=== PATIENT | male | born 1945 | race Two or more races ===

== ENCOUNTER 2018-10-17 19:36 | Emergency (ER) | payer MEDICARE, OTHER ==
[~2018-10-17] VITALS: Ht 175.3 cm; Wt 79.4 kg
--- NOTE | 2018-10-17 19:41 | NUR ---
BIB RA FROM HOME S/P FALL FROM LADDER APPROX HEIGHT THE ER CEILING WHICH IS ABOUT 8 FEET IN HEIGHT. C/O R SHOULDER PAIN 10/10, R CHEST PAIN 10/10. PT IS TACHYPNEIC. HE IS TREMBLING. PER REPORT, NO KO. PT RECEIEVED ON C COLLAR FOR PRECAUTION. MD AT BEDSIDE FOR EVAL.
[2018-10-17] MEDS ORDERED: ONDANSETRON HCL/PF 4 MG/2 ML VIAL ONE (19:43)
[2018-10-17] MEDS ORDERED: HYDROMORPHONE 1 MG/1 ML DISP.SYRIN ONE (19:43)
--- NOTE | 2018-10-17 19:49 | NUR ---
BEING WHEELED TO RADIOLOGY
[2018-10-17] MEDS ORDERED: IV NS 0.9% 1,000 ML BAG IV ONE (20:00)
[2018-10-17] MEDS ORDERED: HYDROMORPHONE INJ 2 MG/ML DISP.SYRIN IV ONE (20:00)
[2018-10-17] MEDS ORDERED: ONDANSETRON HCL/PF 4 MG/2 ML VIAL IVP ONE (20:00)
--- NOTE | 2018-10-17 20:06 | NUR ---
BACK FROM RADIOLOGY
--- NOTE | 2018-10-17 20:25 | NUR ---
GIVEN ICE CHIP FOR DRY MOUTH. APPROVED.
--- NOTE | 2018-10-17 20:30 | NUR ---
CALLED [facility] RE: RADIOLOGY READS
--- NOTE | 2018-10-17 20:57 | NUR ---
TECH AT BEDSIDE TO PUT ARM SLONG ON PATIENT.
--- NOTE | 2018-10-17 21:05 | NUR ---
PT REQUESTED ANOTHER CERVICAL COLLAR
[2018-10-17 21:10] VITALS: BP 154/94
--- NOTE | 2018-10-17 21:10 | NUR ---
Patient discharged to home in stable condition. Written and verbal after care instructions given. Patient verbalizes understanding of instruction.
== END 2018-10-17 21:13 | disposition home or self-care (01) ==
LOC: ER 19:38
DX: S40.011A Contusion of right shoulder, initial encounter (principal); S09.8XXA Other specified injuries of head, initial encounter; W11.XXXA Fall on and from ladder, initial encounter; Y93.89 Activity, other specified; Y92.89 Other specified places as the place of occurrence of the external cause; Y99.0 Civilian activity done for income or pay
CPT/HCPCS: 70450; 71045; 72125; 73030; 96374; 96375; 99284; J1170; J2405; J7030; L0172

== ENCOUNTER 2020-08-23 18:11 | Emergency (ER) | payer BC, MEDICARE ==
[~2020-08-23] VITALS: Ht 172.7 cm; Wt 79.4 kg
[2020-08-23] MEDS ORDERED: SERT-438 PO (18:37)
[2020-08-23 18:46] LABS: BASOPHILS % (AUTO) 0.3 % (0.0-2.0); EOSINOPHILS % (AUTO) 3.4 % (0.0-6.0); HEMATOCRIT 36 % (39-51); HEMOGLOBIN 12.2 g/dL (13.5-17.5); LYMPHOCYTES # (AUTO) 1.4 /CMM (0.8-4.8); LYMPHOCYTES % (AUTO) 32.4 % (20.0-44.0); MEAN CORPUSCULAR HGB CONC 34 g/dl (31.0-36.0); MEAN CORPUSCULAR VOLUME 92 fL (80-96); MONOCYTES # (AUTO) 0.3 /CMM (0.1-1.30); MONOCYTES % (AUTO) 6.2 % (2.0-12.0); NEUTROPHILS # (AUTO) 2.5 /CMM (1.8-8.9); NEUTROPHILS % (AUTO) 57.7 % (43.0-81.0); PLATELET COUNT (AUTO) 170 /CMM (150-450); RED BLOOD CELL COUNT(AUTO) 3.91 MIL/uL (4.5-6.0); WHITE BLOOD COUNT (AUTO) 4.3 K/uL (4.3-11.0)
--- NOTE | 2020-08-23 18:54 | NUR ---
BIBS W/ FAMILY TO ER BED 6. AAOX4. NOT IN RESP DISTRESS, BREATHING EVEN, UNLABORED AND SATTING @ 100% ON RA. CAME IN FOR FEELING SHORT OF BREATH FOR THE PAST 4 DAYS WELL FATIGUE. PT REPORTS THAT HE HAD A BLADDER SURGERY RECENTLY BUT UNABLE TO SAY WHAT IS THE NAME OF THE PROCEDURE. MD WAS AT THE BEDSIDE FOR EVAL. ORDERS RECEIEVED, NOTED AND CARRIED OUT. IV LINE ESTABLISHED ON THE L AC 18G, BLOOD DRAWN AND GIVEN TO FORWARDER OPERATOR AT BEDSIDE.
[2020-08-23 19:08] LABS: B-TYPE NATRIURETIC PEPTIDE 363 PG/ML (0-125); CALCIUM, SERUM 8.9 mg/dL (8.5-10.1); CARBON DIOXIDE 29 mmol/L (21-32); CHLORIDE 105 mmol/L (98-107); CREATININE 5.3 mg/dL (0.6-1.3); GLUCOSE 108 mg/dL (74-106); POTASSIUM 4.9 mmol/L (3.5-5.1); SODIUM SERUM 142 mmol/L (136-145)
--- NOTE | 2020-08-23 19:10 | NUR ---
LAB CALLED BUN IS 85
[2020-08-23 19:11] LABS: UREA NITROGEN, BLOOD 85 mg/dL (7-18)
[2020-08-23 19:13] LABS: D-DIMER 2.82 mg/L(FEU (0.17-0.50)
--- NOTE | 2020-08-23 19:59 | NUR ---
Patient does not wish to proceed with medical care recommended by Dr. Geoffrey Garcia MD. Patient given information related to possible complications, up to and including , which could occur as a result of leaving the hospital at this time. Patient verbalizes understanding of risks involved due to leaving against medical advice. Patient has signed AMA form.
[2020-08-23 20:04] VITALS: BP 147/83
--- NOTE | 2020-08-23 20:04 | NUR ---
IV removed. Catheter intact and site benign. Pressure and 4x4 applied to site. No bleeding noted. Pt ambulatory with a steady gait
== END 2020-08-23 20:04 | disposition left against medical advice (07) ==
LOC: ER 18:25
DX: N17.9 Acute kidney failure, unspecified (principal); Z79.899 Other long term (current) drug therapy
CPT/HCPCS: 36415; 71045-TC; 80048-TC; 83880; 84484-TC; 85025-TC; 85378-TC; 85730-TC

== ENCOUNTER 2020-08-23 21:24 | Inpatient (IN) | payer MEDICARE, BC ==
[~2020-08-23] VITALS: Ht 182.9 cm; Wt 79.8 kg
[~2020-08-23 21:24] MED LIST: SERT-438 PO
--- NOTE | 2020-08-23 21:55 | NUR ---
BIBFAMILY FROM HOME TO ER BED 6. AAOX4. NOT IN RESP DISTRESS. AMBULATORY. PT CAME BACK FROM SIGNING AMA EARLIER. PT WAS SUPPOSE TO BE ADMITTED FOR ACUTE KIDNEY INJURY AND ELEVATED D DIMMER. PT VERBALIZED THAT HE WAS TOO NERVOUS EARLIER THAT IS WHY HE LEFT AMA. PT IS IN A GOWN. IV LINE ESTABLISHED ON THE RFA 18G.
[2020-08-23] MEDS ORDERED: ONDANSETRON HCL/PF 4 MG/2 ML VIAL IVP PRN (22:00)
[2020-08-23] MEDS ORDERED: MAGNESIUM HYDROXIDE 30 ML UDC PO PRN (22:00)
[2020-08-23] MEDS ORDERED: ZOLPIDEM TARTRATE 5 MG TABLET PO PRN (22:00)
[2020-08-23] MEDS ORDERED: ACETAMINOPHEN 325 MG TABLET PO PRN (22:00)
[2020-08-23] MEDS ORDERED: HYDROCODONE/APAP 5/325MG TABLET PO PRN (22:00)
--- NOTE | 2020-08-23 22:01 | NUR ---
COVID SWAB DONE AND SENT TO LAB
--- NOTE | 2020-08-23 22:35 | NUR ---
PT'S ISABELLE CALLED TO HAVE HIS HELD IN THE ER. PT HAVE ALREADY HAVE HIS MOTHER PICK HIM UP. PT'S IS VERY PUSHY AND DEMANDING. PT WAS CELARED TO BE DISCHARGED ALREADY.
--- NOTE | 2020-08-23 23:37 | NUR ---
nursing sup called for room assigment
--- NOTE | 2020-08-24 00:17 | NUR ---
report given to denny hogan for adi; pt will be transported to 3rd floor
[2020-08-24 00:30] VITALS: BP 139/73
--- NOTE | 2020-08-24 00:30 | NUR ---
TELE/EDGE ROLLER NOTE PATIENT TRANSPORTED TO ROOM 317-2 VIA GURNEY AND 1 STAFF MEMBER. PATIENT IS ALERT AND ORIENTED X 4. ABLE TO MAKE NEEDS KNOWN. NO COMPLAINTS OF PAIN AT THIS TIME. RESPIRATIONS EVEN AND UNLABORED. IV ACCESS TO RIGHT WRIST INTACT AND PATENT. NO SKIN ISSUES NOTED ON ADMISSION. MRSA SWAB CURRENTLY PENDING. PATIENT STARTED ON IVF NS @ 100ML/HR. VS: BP 139/73 HR 60 RR 20 T 97.6 O2 SAT 100% ON ROOM AIR. PATIENT ABLE TO AMBULATE WITH STANDBY ASSIST. CALL LIGHT WITHIN REACH. ASPIRATION, FALL AND SAFETY PRECAUTIONS MAINTAINED. WILL CONTINUE TO MONITOR.
[2020-08-24] MEDS: IV NS 0.9% 1,000 ML IV PRN ×2 (00:51→15:29)
[2020-08-24] MEDS: APIXABAN 2.5 MG TABLET PO SCH ×3 (00:53→17:28)
[2020-08-24 04:00] VITALS: BP 140/78
--- NOTE | 2020-08-24 06:08 | NUR ---
TELE/RN CLOSING NOTE PATIENT CURRENTLY RESTING IN BED. ALERT AND ORIENTED X 4. ABLE TO MAKE NEEDS KNOWN. NO COMPLAINTS OF PAIN AT THIS TIME. IV ACCESS TO RIGHT WRIST INTACT AND PATENT. CONTINUES ON NS @ 100ML/HR. CALL LIGHT WITHIN REACH. ASPIRATION, FALL AND SAFETY PRECAUTIONS MAINTAINED. WILL ENDORSE PLAN OF CARE TO ONCOMING SHIFT.
[2020-08-24 06:28] LABS: BASOPHILS % (AUTO) 0.4 % (0.0-2.0); EOSINOPHILS % (AUTO) 2.6 % (0.0-6.0); HEMATOCRIT 35 % (39-51); LYMPHOCYTES # (AUTO) 1.3 /CMM (0.8-4.8); LYMPHOCYTES % (AUTO) 31.8 % (20.0-44.0); MEAN CORPUSCULAR HGB CONC 34 g/dl (31.0-36.0); MEAN CORPUSCULAR VOLUME 91 fL (80-96); MONOCYTES # (AUTO) 0.2 /CMM (0.1-1.30); MONOCYTES % (AUTO) 4.9 % (2.0-12.0); NEUTROPHILS # (AUTO) 2.5 /CMM (1.8-8.9); NEUTROPHILS % (AUTO) 60.3 % (43.0-81.0); PLATELET COUNT (AUTO) 156 /CMM (150-450); RED BLOOD CELL COUNT(AUTO) 3.86 MIL/uL (4.5-6.0); WHITE BLOOD COUNT (AUTO) 4.1 K/uL (4.3-11.0)
--- NOTE | 2020-08-24 06:45 | NUR ---
TELE/RN NOTE COLLECTED URINE FOR URINALYSIS PROFILE. PATIENT ON TELE MONITOR READING SINUS ARRHYTHMIA. NO COMPLAINTS OF SOB OR HEART PALPITATIONS. WILL ENDORSE TO ONCOMING RN.
[2020-08-24 06:47] LABS: CALCIUM, SERUM 8.9 mg/dL (8.5-10.1); CARBON DIOXIDE 27 mmol/L (21-32); CHLORIDE 107 mmol/L (98-107); CREATININE 4.7 mg/dL (0.6-1.3); GLUCOSE 111 mg/dL (74-106); POTASSIUM 4.7 mmol/L (3.5-5.1); SODIUM SERUM 143 mmol/L (136-145); UREA NITROGEN, BLOOD 76 mg/dL (7-18)
[2020-08-24 07:03] LABS: CHOLESTEROL 184 mg/dL (<200); HDL CHOLESTEROL 33 mg/dL (40-60); LDL 123 mg/dL (0-99); TRIGLYCERIDES 104 mg/dL (30-150)
[2020-08-24 08:00] VITALS: BP 160/89
--- NOTE | 2020-08-24 08:08 | NUR ---
WORD PROCESSING SPECIALIST OPENING NOTE PATIENT CURRENTLY SITTING UP IN BED EATING BREAKFAST. A/O X 4. ABLE TO MAKE NEEDS KNOWN. NO COMPLAINTS OF PAIN AT THIS TIME. IV IN RIGHT WRIST #18 INTACT AND PATENT - RUNNING NS @ 100ML/HR. CALL LIGHT WITHIN REACH. ASPIRATION, FALL AND SAFETY PRECAUTIONS MAINTAINED. WILL CONTINUE TO MONITOR.
[2020-08-24] MEDS: SERTRALINE HCL 50 MG TABLET PO SCH (08:50)
[2020-08-24 08:56] LABS: IRON, SERUM 49 ug/dl (50-175); TOTAL IRON BINDING CAPACITY 250 ug/dl (250-450)
[2020-08-24 09:33] LABS: FERRITIN 372 ng/mL (8-388)
--- NOTE | 2020-08-24 11:05 | NUR ---
[phone]), PT'S DAUGHTER CALLED AND WAS UPDATED ON PT'S STATUS. WILL CONTINUE WITH PLAN OF CARE
[2020-08-24 11:37] LABS: BILIRUBIN,URINE NEGATIVE (NEGATIVE); COLOR,URINE YELLOW (YELLOW); LEUKOCYTE ESTERASE ,URINE NEGATIVE (NEGATIVE); NITRITE, URINE NEGATIVE (NEGATIVE); PROTEIN,URINE NEGATIVE (NEGATIVE); UGLUCOSE NEGATIVE (NEGATIVE); UROBILINOGEN,URINE 0.2 EU/dL (0.2)
[2020-08-24 12:46] LABS: RBC,URINE 21-50 /HPF (0-2)
[2020-08-24 12:47] LABS: BACTERIA,URINE Rare /HPF (None Seen); SQUAMOUS EPITHELIAL CELL,UR Rare /HPF (None Seen)
[2020-08-24 16:04] VITALS: BP 155/100
--- NOTE | 2020-08-24 18:43 | NUR ---
RN CLOSING NOTES PT AWAKE IN BED AT THIS, PT REMAINED STABLE THROUGH OUT SHIFT. ALL CARE, NEEDS, MEDICATIONS AND TREATMENT ADMINISTERED ANTICIPATED PER ORDER. SAFETY AND ASPIRATION PRECAUTIONS IN PLACE AND MAINTAINED AT ALL TIME. BED IN LOWEST LOCKED POSITION, SIDE RAILS UPX2, HOB ELEVATED, CALL LIGHT AND TABLE WITHIN REACH. WILL ENDORSE TO SAFETY ENGINEER NURSE F0R CHICA
[2020-08-24 20:00] VITALS: BP 141/90
--- NOTE | 2020-08-24 20:01 | NUR ---
MS RN OPENING NOTES PATIENT IN BED, A/OX4, ABLE TO MAKE NEEDS KNOWN. ON ROOM AIR, TOLERATING WELL WITH NO SOB. DENIES PAIN OR DISCOMFORT AT THIS TIME. IV #18G TO RIGHT WRIST; PATENT AND INTACT. SAFETY PRECAUTIONS IN PLACE: BED IN LOWEST LOCKED POSITION; SIDERAILS UPX2; CALL LIGHT WITHIN REACH. BED ALARMS ON. PATIENT MEDICALLY STABLE.
[2020-08-25 05:46] LABS: BASOPHILS % (AUTO) 0.4 % (0.0-2.0); EOSINOPHILS % (AUTO) 3.4 % (0.0-6.0); HEMATOCRIT 38 % (39-51); HEMOGLOBIN 12.6 g/dL (13.5-17.5); LYMPHOCYTES # (AUTO) 1.5 /CMM (0.8-4.8); LYMPHOCYTES % (AUTO) 32.5 % (20.0-44.0); MEAN CORPUSCULAR HGB CONC 33 g/dl (31.0-36.0); MEAN CORPUSCULAR VOLUME 91 fL (80-96); MONOCYTES # (AUTO) 0.2 /CMM (0.1-1.30); MONOCYTES % (AUTO) 4.5 % (2.0-12.0); NEUTROPHILS # (AUTO) 2.7 /CMM (1.8-8.9); NEUTROPHILS % (AUTO) 59.2 % (43.0-81.0); PLATELET COUNT (AUTO) 162 /CMM (150-450); RED BLOOD CELL COUNT(AUTO) 4.16 MIL/uL (4.5-6.0); WHITE BLOOD COUNT (AUTO) 4.5 K/uL (4.3-11.0)
[2020-08-25 06:09] LABS: ALANINE AMINOTRANSFERASE 18 U/L (12-78); ALBUMIN 3.4 g/dL (3.4-5.0); ALKALINE PHOSPHATASE 59 U/L (46-116); ASPARTATE AMINOTRANSFERASE 9 U/L (15-37); BILIRUBIN,TOTAL 0.3 mg/dL (0.2-1.0); CALCIUM, SERUM 9.4 mg/dL (8.5-10.1); CARBON DIOXIDE 27 mmol/L (21-32); CHLORIDE 108 mmol/L (98-107); CREATININE 3.7 mg/dL (0.6-1.3); GLUCOSE 113 mg/dL (74-106); MAGNESIUM 2.6 mg/dL (1.8-2.4); PHOSPHORUS 5.7 mg/dL (2.5-4.9); POTASSIUM 4.8 mmol/L (3.5-5.1); SODIUM SERUM 144 mmol/L (136-145); TOTAL PROTEIN, SERUM 7.2 g/dL (6.4-8.2); UREA NITROGEN, BLOOD 63 mg/dL (7-18)
--- NOTE | 2020-08-25 07:06 | NUR ---
MS RN CLOSING NOTES PATIENT IN BED, A/OX4, ABLE TO MAKE NEEDS KNOWN. ON ROOM AIR, TOLERATING WELL WITH NO SOB. DENIES PAIN OR DISCOMFORT AT THIS TIME. IV #18G TO RIGHT WRIST; NS @ 100ML/HR; PATENT AND INTACT. SAFETY PRECAUTIONS IN PLACE: BED IN LOWEST LOCKED POSITION; SIDERAILS UPX2; CALL LIGHT WITHIN REACH. BED ALARMS ON. PATIENT MEDICALLY STABLE.
[2020-08-25] MEDS: IV NS 0.9% 1,000 ML IV PRN (07:20)
[2020-08-25 08:00] VITALS: BP 155/86
--- NOTE | 2020-08-25 08:00 | NUR ---
RN OPENING NOTE PT IS AWAKE IN BED. A/O X3 AND UKRAINIAN SPEAKING. ABLE TO MAKE NEEDS KNOWN TO NURSES. NO COMPLAINT OF PAIN OR NAUSEA.COMPLAINT OF CONSTIPATION.. ON RA WITH NO SOB OR RESPIRATORY DISTRESS PRESENT. AMBULATORY WITH BATHROOM PRIVILEGES. SKIN IS INTACT. SAFETY MEASURES IN PLACE. SIDE RAILS RAISED. BED LOWERED. CALL LIGHT WITHIN REACH. WILL CONTINUE TO MONITOR.
[2020-08-25 08:06] LABS: COMPLEMENT C3, SERUM 131 mg/dL (82-167); COMPLEMENT C4, SERUM 24 mg/dL (12-38)
[2020-08-25] MEDS: SERTRALINE HCL 50 MG TABLET PO SCH (08:14)
[2020-08-25] MEDS: APIXABAN 2.5 MG TABLET PO SCH ×2 (08:18→16:53)
[2020-08-25 11:03] LABS: ABG BASE EXCESS 0.7 mmol/L; ABG OXYGEN SATURATION 97.8 % (92.0-98.5); ABG PCO2 25.8 mmHg (35.0-45.0); ABG PH 7.546 (7.350-7.450); ABG PO2 108.3 mmHg (75.0-100.0); AaDO2 10.5 mmHg; MetHb 0.2 % (0.0-1.5); O2Hb 97.6 % (94.0-97.0); SITE, ABG Right Radial; VENT MODE, BG room air
[2020-08-25] MEDS: IPRATROPIUM NEB FS 0.5 MG/2.5 ML AMPUL.NEB NEB SCH ×3 (11:30→19:30)
[2020-08-25] MEDS: ALBUTEROL HALF STRENGTH 1.25 MG/3 ML VIAL.NEB NEB SCH ×3 (11:30→19:30)
[2020-08-25 16:00] VITALS: BP 131/78
--- NOTE | 2020-08-25 18:33 | NUR ---
RN CLOSING NOTE PT IS AWAKE IN BED RESTING. A/O X3 AND UNDERSTANDS KYRGYZ. NO COMPLAINT OF PAIN OR NAUSEA. CURRENTLY ON RA WITH NO SOB OR RESPIRATORY DISTRESS PRESENT. AMBULATORY WITH BATHROOM PRIVILEGES. SKIN IS INTACT. NO EDEMA PRESENT. HL PRESENT ON R WRIST 18G. ROUTINE MEDS GIVEN. SAFETY MEASURES IN PLACE. SIDE RAILS RAISED. BED LOWERED. CALL LIGHT WITHIN REACH. ROUTINE MEDS TO BE GIVEN TO NIGHT NURSE FOR CHICA.
--- NOTE | 2020-08-25 19:32 | NUR ---
MS RN OPENING NOTES PATIENT IN BED, A/OX4, ABLE TO MAKE NEEDS KNOWN. ON ROOM AIR, TOLERATING WELL WITH NO SOB. DENIES PAIN OR DISCOMFORT AT THIS TIME. IV #18G TO RIGHT WRIST; NS @ 100ML/HR; PATENT AND INTACT. SAFETY PRECAUTIONS IN PLACE: BED IN LOWEST LOCKED POSITION; SIDERAILS UPX2; CALL LIGHT WITHIN REACH. BED ALARMS ON. PATIENT MEDICALLY STABLE.
[2020-08-25 20:10] VITALS: BP 127/73
--- NOTE | 2020-08-26 01:27 | NUR ---
MS RN NOTE D/STEFANIA ELIQUIS. EXTREMITY VENOUS STUDY INDICATED NO DVT. PER. DR OCONNOR "can discontinue anticoagulant if thromboembolic work-up is negative"
[2020-08-26] MEDS: IPRATROPIUM NEB FS 0.5 MG/2.5 ML AMPUL.NEB NEB SCH ×4 (01:30→19:30)
[2020-08-26] MEDS: ALBUTEROL HALF STRENGTH 1.25 MG/3 ML VIAL.NEB NEB SCH ×4 (01:30→19:30)
[2020-08-26 06:17] LABS: ALANINE AMINOTRANSFERASE 15 U/L (12-78); ALBUMIN 3.2 g/dL (3.4-5.0); ALKALINE PHOSPHATASE 56 U/L (46-116); ASPARTATE AMINOTRANSFERASE 10 U/L (15-37); BILIRUBIN,TOTAL 0.4 mg/dL (0.2-1.0); CARBON DIOXIDE 26 mmol/L (21-32); CHLORIDE 109 mmol/L (98-107); CREATININE 3.1 mg/dL (0.6-1.3); GLUCOSE 118 mg/dL (74-106); MAGNESIUM 2.4 mg/dL (1.8-2.4); PHOSPHORUS 4.8 mg/dL (2.5-4.9); POTASSIUM 4.2 mmol/L (3.5-5.1); SODIUM SERUM 143 mmol/L (136-145); UREA NITROGEN, BLOOD 54 mg/dL (7-18)
[2020-08-26 06:26] LABS: BASOPHILS % (AUTO) 0.9 % (0.0-2.0); EOSINOPHILS % (AUTO) 1.5 % (0.0-6.0); HEMATOCRIT 37 % (39-51); HEMOGLOBIN 12.4 g/dL (13.5-17.5); LYMPHOCYTES # (AUTO) 1.7 /CMM (0.8-4.8); LYMPHOCYTES % (AUTO) 34.3 % (20.0-44.0); MEAN CORPUSCULAR HGB CONC 33 g/dl (31.0-36.0); MEAN CORPUSCULAR VOLUME 92 fL (80-96); MONOCYTES # (AUTO) 0.2 /CMM (0.1-1.30); MONOCYTES % (AUTO) 3.7 % (2.0-12.0); NEUTROPHILS % (AUTO) 59.6 % (43.0-81.0); PLATELET COUNT (AUTO) 153 /CMM (150-450); RED BLOOD CELL COUNT(AUTO) 4.05 MIL/uL (4.5-6.0)
--- NOTE | 2020-08-26 06:42 | NUR ---
MS RN CLOSING NOTES PATIENT IN BED, A/OX4, ABLE TO MAKE NEEDS KNOWN. ON ROOM AIR, TOLERATING WELL WITH NO SOB. DENIES PAIN OR DISCOMFORT AT THIS TIME. IV #18G TO RIGHT WRIST; NS @ 100ML/HR; PATENT AND INTACT. SAFETY PRECAUTIONS IN PLACE: BED IN LOWEST LOCKED POSITION; SIDERAILS UPX2; CALL LIGHT WITHIN REACH. BED ALARMS ON. PATIENT MEDICALLY STABLE. WILL ENDORSE CHICA TO ONCOMING MORNING RN.
[2020-08-26 08:00] VITALS: BP 159/102
--- NOTE | 2020-08-26 08:00 | NUR ---
RN OPENING NOTE PT IS AWAKE IN BED. A/O X3 AND MALAY SPEAKING. ABLE TO MAKE NEEDS KNOWN TO NURSES. NO COMPLAINT OF PAIN OR NAUSEA.COMPLAINT OF CONSTIPATION.. ON RA WITH NO SOB OR RESPIRATORY DISTRESS PRESENT. AMBULATORY WITH BATHROOM PRIVILEGES. SKIN IS INTACT. SAFETY MEASURES IN PLACE. SIDE RAILS RAISED. BED LOWERED. CALL LIGHT WITHIN REACH. WILL CONTINUE TO MONITOR.
[2020-08-26] MEDS: SERTRALINE HCL 50 MG TABLET PO SCH (10:50)
[2020-08-26 16:00] VITALS: BP 125/60
--- NOTE | 2020-08-26 18:43 | NUR ---
RN CLOSING NOTE PT IS AWAKE IN BED RESTING. A/O X3 AND UNDERSTANDS ITALIAN. NO COMPLAINT OF PAIN OR NAUSEA. CURRENTLY ON RA WITH NO SOB OR RESPIRATORY DISTRESS PRESENT. AMBULATORY WITH BATHROOM PRIVILEGES. SKIN IS INTACT. NO EDEMA PRESENT. HL PRESENT ON R WRIST 18G. ROUTINE MEDS GIVEN. SAFETY MEASURES IN PLACE. SIDE RAILS RAISED. BED LOWERED. CALL LIGHT WITHIN REACH. ROUTINE MEDS TO BE GIVEN TO NIGHT NURSE FOR CHICA.
[2020-08-26 20:00] VITALS: BP 132/73
--- NOTE | 2020-08-26 20:00 | NUR ---
RN OPENING NOTE AWAKE IN BED A/O X3 DENIES PAIN OR NAUSEA. CURRENTLY ON RA DENIES SOB OR RESPIRATORY DISTRESS. AMBULATORY WITH BATHROOM PRIVILEGES. SKIN INTACT. NO EDEMA PRESENT. HL PRESENT ON R WRIST 18G. ROUTINE MEDS GIVEN. PT REFUSING IVF ORDERED. PT ENCOURAGED TO DRINK MORE WATER. SAFETY MEASURES IN PLACE. SIDE RAILS RAISED. BED DOWN. CALL LIGHT WITHIN REACH. WILL CONT TO MONITOR.
--- NOTE | 2020-08-26 21:00 | NUR ---
PT DECIDED TO START NS AT 100 AGAIN. IVF STARTED PER MD ORDERS.
[2020-08-27] MEDS: IV NS 0.9% 1,000 ML IV PRN (01:57)
[2020-08-27] MEDS: IPRATROPIUM NEB FS 0.5 MG/2.5 ML AMPUL.NEB NEB SCH ×3 (02:01→12:40)
[2020-08-27] MEDS: ALBUTEROL HALF STRENGTH 1.25 MG/3 ML VIAL.NEB NEB SCH ×3 (02:01→12:40)
--- NOTE | 2020-08-27 07:11 | NUR ---
RN CLOSING NOTE IN BED A/O X3 DENIES PAIN OR NAUSEA. ON RA DENIES SOB OR RESPIRATORY DISTRESS. AMBULATORY WITH BATHROOM PRIVILEGES. SKIN INTACT. NO EDEMA PRESENT. HL PRESENT ON R WRIST 18G. RUNNING NS AT 100 ML PER HOUR ORDERED. SIDE RAILS RAISED X2. BED DOWN LOCKED. CALL LIGHT WITHIN REACH. WILL ENDORSE TO ONCOMING SHIFT.
--- NOTE | 2020-08-27 07:30 | NUR ---
RN MS NOTES PT IN BED, AWAKE, ALERT AND ORIENTED, DENIES PAIN, NOT IN DISTRESS, CALL LIGHT WITHIN REACH, IV FLUIDS INFUSING WELL, PLAN OF CARE DISCUSSED WITH PT, VERBALIZED UNDERSTANDING, PT AMBULATORY, NEEDS ATTENDED.
[2020-08-27] MEDS: SERTRALINE HCL 50 MG TABLET PO SCH (09:11)
[2020-08-27 09:52] LABS: ALANINE AMINOTRANSFERASE 19 U/L (12-78); ALBUMIN 3.5 g/dL (3.4-5.0); ALKALINE PHOSPHATASE 56 U/L (46-116); ASPARTATE AMINOTRANSFERASE 10 U/L (15-37); BILIRUBIN,TOTAL 0.4 mg/dL (0.2-1.0); CALCIUM, SERUM 8.6 mg/dL (8.5-10.1); CARBON DIOXIDE 27 mmol/L (21-32); CHLORIDE 108 mmol/L (98-107); CREATININE 2.6 mg/dL (0.6-1.3); GLUCOSE 163 mg/dL (74-106); PHOSPHORUS 3.2 mg/dL (2.5-4.9); POTASSIUM 3.9 mmol/L (3.5-5.1); SODIUM SERUM 145 mmol/L (136-145); TOTAL PROTEIN, SERUM 7.3 g/dL (6.4-8.2); UREA NITROGEN, BLOOD 47 mg/dL (7-18)
[2020-08-27 11:07] LABS: *ANA ANTI-CENTROMERE B AB <0.2 AI (0.0-0.9); *ANA ANTI-DNA(DS) AB, QN 7 IU/mL (0-9); *ANA ANTI-JO-1 <0.2 AI (0.0-0.9); *ANA ANTICHROMATIN ANTIBODY <0.2 AI (0.0-0.9); *ANA RNP ANTIBODIES <0.2 AI (0.0-0.9); *ANA SJOGREN'S ANTI-SS-A <0.2 AI (0.0-0.9); *ANA SJOGREN'S ANTI-SS-B <0.2 AI (0.0-0.9); *ANAANTI-SCLERODERMA-70 AB <0.2 AI (0.0-0.9); *ANASMITH AB <0.2 AI (0.0-0.9)
--- NOTE | 2020-08-27 13:46 | NUR ---
RN MS NOTES PT AWAKE, AMBULATORY, NO COMPLAINT OF PAIN, NOT IN DISTRESS, SEEN BY DR. LECHUGA, DISCHARGE ORDER GIVEN, DISCHARGE AND MEDICATION INSTRUCTIONS PROVIDED TO PT, VERBALIZED UNDERSTANDING, PT TO FOLLOW UP WITH DR. ALEJO, BELONGINGS ACCOUNTED FOR, ASSISTED TO HOSPITAL LOBBY, PICKED UP BY HIS DAUGHTER, LEFT VIA PRIVATE CAR IN STABLE CONDITION.
== END 2020-08-27 13:30 | disposition home or self-care (01) | DRG 693 ==
LOC: ER 21:28 → TELE 08-24 00:04 → MED 08-24 09:27
PROVIDERS: ADMIT Nurse Practitioner Acute Care; ATTEND Internal Medicine
DX: N13.8 Other obstructive and reflux uropathy (principal); N17.0 Acute kidney failure with tubular necrosis; N13.30 Unspecified hydronephrosis; D64.9 Anemia, unspecified; F41.9 Anxiety disorder, unspecified; Z20.822 Contact with and (suspected) exposure to COVID-19; Z79.899 Other long term (current) drug therapy; E83.41 Hypermagnesemia; Z87.448 Personal history of other diseases of urinary system; Z98.890 Other specified postprocedural states; E88.9 Metabolic disorder, unspecified
CPT/HCPCS: 36415; 36600; 71045-TC; 76770-TC; 78582; 80048-TC; 80053-TC; 80061-TC; 81001; 82728-TC; 82803-TC; 83540-TC; 83735-TC; 83880; 84100-TC; 84484-TC; 85025-TC; 85378-TC; 85652-TC; 85730-TC; 86225; 86235; 86706; 86803; 87081-TC; 87340; 93307-TC; 93970-TC; 94799-TC; A9540; A9567; C9803; G0378; J7030

== ENCOUNTER 2020-09-03 08:53 | Outpatient (CLI) | payer MEDICARE, BC ==
[2020-09-03 09:55] LABS: BILIRUBIN,URINE NEGATIVE (NEGATIVE); COLOR,URINE YELLOW (YELLOW); LEUKOCYTE ESTERASE ,URINE SMALL (NEGATIVE); NITRITE, URINE NEGATIVE (NEGATIVE); PH,URINE 5.5 (5.0-8.0); PROTEIN,URINE 30 mg/dl (NEGATIVE); UGLUCOSE NEGATIVE (NEGATIVE); UROBILINOGEN,URINE 0.2 EU/dL (0.2)
[2020-09-03 09:59] LABS: BASOPHILS % (AUTO) 0.4 % (0.0-2.0); EOSINOPHILS % (AUTO) 2.2 % (0.0-6.0); HEMATOCRIT 39 % (39-51); HEMOGLOBIN 12.9 g/dL (13.5-17.5); LYMPHOCYTES # (AUTO) 1.6 /CMM (0.8-4.8); LYMPHOCYTES % (AUTO) 37.7 % (20.0-44.0); MEAN CORPUSCULAR HGB CONC 33 g/dl (31.0-36.0); MEAN CORPUSCULAR VOLUME 91 fL (80-96); MONOCYTES # (AUTO) 0.2 /CMM (0.1-1.30); MONOCYTES % (AUTO) 5.3 % (2.0-12.0); NEUTROPHILS # (AUTO) 2.3 /CMM (1.8-8.9); NEUTROPHILS % (AUTO) 54.4 % (43.0-81.0); PLATELET COUNT (AUTO) 142 /CMM (150-450); RED BLOOD CELL COUNT(AUTO) 4.29 MIL/uL (4.5-6.0); WHITE BLOOD COUNT (AUTO) 4.3 K/uL (4.3-11.0)
[2020-09-03 10:04] LABS: CREATININE, URINE 106.4 MG/DL (30.0-125.0); URINE TOTAL PROTEIN 62.5 mg/dL (0-11.9)
[2020-09-03 10:14] LABS: C-REACTIVE PROTEIN 0.6 mg/dL (0.0-0.9)
[2020-09-03 10:18] LABS: ALANINE AMINOTRANSFERASE 17 U/L (12-78); ALBUMIN 3.7 g/dL (3.4-5.0); ALKALINE PHOSPHATASE 58 U/L (46-116); ASPARTATE AMINOTRANSFERASE 12 U/L (15-37); BILIRUBIN,TOTAL 0.3 mg/dL (0.2-1.0); CALCIUM, SERUM 9.2 mg/dL (8.5-10.1); CARBON DIOXIDE 30 mmol/L (21-32); CHLORIDE 104 mmol/L (98-107); CREATININE 1.9 mg/dL (0.6-1.3); GLUCOSE 106 mg/dL (74-106); MAGNESIUM 2.3 mg/dL (1.8-2.4); POTASSIUM 3.9 mmol/L (3.5-5.1); SODIUM SERUM 140 mmol/L (136-145); TOTAL PROTEIN, SERUM 7.5 g/dL (6.4-8.2); UREA NITROGEN, BLOOD 29 mg/dL (7-18)
[2020-09-03 10:20] LABS: BACTERIA,URINE Few /HPF (None Seen); RBC,URINE TOO NUMEROUS TO COUN /HPF (0-2)
[2020-09-03 10:21] LABS: SQUAMOUS EPITHELIAL CELL,UR Rare /HPF (None Seen)
== END 2020-09-03 23:59 | disposition home or self-care (01) ==
LOC: MSC 08:53
PROVIDERS: ATTEND Internal Medicine
DX: N17.9 Acute kidney failure, unspecified (principal); I10 Essential (primary) hypertension; M54.9 Dorsalgia, unspecified; M51.36 Other intervertebral disc degeneration, lumbar region; I70.0 Atherosclerosis of aorta; Z98.890 Other specified postprocedural states
CPT/HCPCS: 36415; 71100; 72110; 80053; 81001; 82043; 82570; 83036; 83735; 84100; 84155; 85025; 85652; 86140; 87086; G0463

== ENCOUNTER 2020-09-09 08:02 | Outpatient (CLI) | payer MEDICARE, BC | END 2020-09-09 23:59 | disposition home or self-care (01) | LOC: US 08:02 | PROVIDERS: ATTEND Internal Medicine | DX: N17.9 Acute kidney failure, unspecified (principal) | CPT/HCPCS: 76770-TC ==

== ENCOUNTER 2020-09-12 12:00 | Outpatient (CLI) | payer MEDICARE, BC | END 2020-09-12 23:59 | disposition home or self-care (01) | LOC: MSC 12:00 | PROVIDERS: ATTEND Internal Medicine | DX: N17.9 Acute kidney failure, unspecified (principal); M54.9 Dorsalgia, unspecified; I10 Essential (primary) hypertension; Z79.899 Other long term (current) drug therapy; Z87.448 Personal history of other diseases of urinary system ==

== ENCOUNTER 2020-11-25 14:35 | Outpatient (CLI) | payer MEDICARE, BC ==
[2020-11-25 15:18] LABS: BASOPHILS % (AUTO) 0.4 % (0.0-2.0); EOSINOPHILS % (AUTO) 1.1 % (0.0-6.0); HEMATOCRIT 38 % (39-51); HEMOGLOBIN 12.8 g/dL (13.5-17.5); LYMPHOCYTES % (AUTO) 46.1 % (20.0-44.0); MEAN CORPUSCULAR HGB CONC 33 g/dl (31.0-36.0); MEAN CORPUSCULAR VOLUME 95 fL (80-96); MONOCYTES # (AUTO) 0.2 /CMM (0.1-1.30); MONOCYTES % (AUTO) 5.3 % (2.0-12.0); NEUTROPHILS # (AUTO) 2.1 /CMM (1.8-8.9); NEUTROPHILS % (AUTO) 47.1 % (43.0-81.0); PLATELET COUNT (AUTO) 144 /CMM (150-450); RED BLOOD CELL COUNT(AUTO) 4.05 MIL/uL (4.5-6.0); WHITE BLOOD COUNT (AUTO) 4.4 K/uL (4.3-11.0)
[2020-11-25 16:08] LABS: ALANINE AMINOTRANSFERASE 24 U/L (12-78); ALBUMIN 3.8 g/dL (3.4-5.0); ALKALINE PHOSPHATASE 64 U/L (46-116); ASPARTATE AMINOTRANSFERASE 18 U/L (15-37); BILIRUBIN,TOTAL 0.3 mg/dL (0.2-1.0); CALCIUM, SERUM 9.2 mg/dL (8.5-10.1); CARBON DIOXIDE 32 mmol/L (21-32); CHLORIDE 106 mmol/L (98-107); CREATININE 1.5 mg/dL (0.6-1.3); GLUCOSE 146 mg/dL (74-106); MAGNESIUM 2.6 mg/dL (1.8-2.4); PHOSPHORUS 3.3 mg/dL (2.5-4.9); POTASSIUM 4.1 mmol/L (3.5-5.1); SODIUM SERUM 143 mmol/L (136-145); TOTAL PROTEIN, SERUM 7.2 g/dL (6.4-8.2); UREA NITROGEN, BLOOD 25 mg/dL (7-18)
== END 2020-11-25 23:59 | disposition home or self-care (01) ==
LOC: MSC 14:35
PROVIDERS: ATTEND Internal Medicine
DX: M54.5 Low back pain (principal); R19.04 Left lower quadrant abdominal swelling, mass and lump; N17.9 Acute kidney failure, unspecified; I10 Essential (primary) hypertension; Z87.448 Personal history of other diseases of urinary system; Z98.890 Other specified postprocedural states
CPT/HCPCS: 36415; 71100; 80053; 83735; 84100; 85025; G0463

== ENCOUNTER 2020-11-27 14:26 | Outpatient (CLI) | payer MEDICARE, BC | END 2020-11-27 23:59 | disposition home or self-care (01) | LOC: US 14:26 | PROVIDERS: ATTEND Internal Medicine | DX: K40.90 Unilateral inguinal hernia, without obstruction or gangrene, not specified as recurrent (principal) ==

== ENCOUNTER 2021-08-14 08:58 | Outpatient (CLI) | payer MEDICARE, BC ==
[~2021-08-14 08:58] MED LIST changes: -SERT-438 PO; +SERT50TA12 PO
[2021-08-14 09:44] LABS: BASOPHILS % (AUTO) 0.2 % (0.0-2.0); EOSINOPHILS % (AUTO) 0.9 % (0.0-6.0); HEMATOCRIT 42 % (39-51); HEMOGLOBIN 14.3 g/dL (13.5-17.5); LYMPHOCYTES % (AUTO) 46.2 % (20.0-44.0); MEAN CORPUSCULAR HGB CONC 34 g/dl (31.0-36.0); MEAN CORPUSCULAR VOLUME 91 fL (80-96); MONOCYTES # (AUTO) 0.3 K/uL (0.1-1.30); MONOCYTES % (AUTO) 5.9 % (2.0-12.0); NEUTROPHILS % (AUTO) 46.8 % (43.0-81.0); PLATELET COUNT (AUTO) 130 K/uL (150-450); RED BLOOD CELL COUNT(AUTO) 4.68 MIL/uL (4.5-6.0); WHITE BLOOD COUNT (AUTO) 4.3 K/uL (4.3-11.0)
[2021-08-14 09:50] LABS: BILIRUBIN,URINE NEGATIVE (NEGATIVE); LEUKOCYTE ESTERASE ,URINE NEGATIVE (NEGATIVE); NITRITE, URINE NEGATIVE (NEGATIVE); PROTEIN,URINE NEGATIVE (NEGATIVE); UGLUCOSE NEGATIVE (NEGATIVE); UROBILINOGEN,URINE 0.2 EU/dL (0.2)
[2021-08-14 09:53] LABS: COLOR,URINE STRAW (YELLOW)
[2021-08-14 09:55] LABS: URINE TOTAL PROTEIN 7.9 mg/dL (0-11.9)
[2021-08-14 09:58] LABS: ALBUMIN 3.7 g/dL (3.4-5.0); BILIRUBIN,TOTAL 0.3 mg/dL (0.2-1.0); CALCIUM, SERUM 8.9 mg/dL (8.5-10.1); CREATININE 1.1 mg/dL (0.6-1.3); MAGNESIUM 2.3 mg/dL (1.8-2.4); PHOSPHORUS 3.3 mg/dL (2.5-4.9); POTASSIUM 3.9 mmol/L (3.5-5.1); TOTAL PROTEIN, SERUM 7.3 g/dL (6.4-8.2)
[2021-08-14 11:42] LABS: BACTERIA,URINE None seen /HPF (None Seen); SQUAMOUS EPITHELIAL CELL,UR None Seen /HPF (None Seen); WBC,URINE 0-2 /HPF (0-3)
== END 2021-08-14 23:59 | disposition home or self-care (01) ==
LOC: MSC 08:58
PROVIDERS: ATTEND Internal Medicine
DX: I10 Essential (primary) hypertension (principal); N17.9 Acute kidney failure, unspecified; M54.9 Dorsalgia, unspecified; R19.04 Left lower quadrant abdominal swelling, mass and lump; Z87.448 Personal history of other diseases of urinary system; Z79.899 Other long term (current) drug therapy
CPT/HCPCS: 36415; 80053; 81001; 82043; 82570; 83735; 84100; 84155; 85025; G0463

== ENCOUNTER 2021-08-21 11:30 | Outpatient (CLI) | payer MEDICARE, BC | END 2021-08-21 23:59 | disposition home or self-care (01) | LOC: MSC 11:30 | PROVIDERS: ATTEND Internal Medicine | DX: R31.9 Hematuria, unspecified (principal); N17.9 Acute kidney failure, unspecified; R80.9 Proteinuria, unspecified; I10 Essential (primary) hypertension; M54.9 Dorsalgia, unspecified; R19.04 Left lower quadrant abdominal swelling, mass and lump; Z87.448 Personal history of other diseases of urinary system ==

== ENCOUNTER 2024-12-27 09:25 | Emergency (ER) | payer MEDICARE, BC ==
[~2024-12-27] VITALS: Ht 162.6 cm; Wt 76.7 kg
[2024-12-27 09:44] VITALS: BP 114/85; O2SAT 98
[2024-12-27] MEDS ORDERED: CYCL5TAB PO (10:40)
[2024-12-27] MEDS ORDERED: HYDR-4303 PO (10:40)
[2024-12-27] MEDS ORDERED: NAPR-1009 PO (10:40)
[2024-12-27] MEDS ORDERED: LIDO30AD10 TP (10:40)
[2024-12-27] MEDS ORDERED: LIDOCAINE 5% (PATCH) 1 EA PATCH TP ONE (10:43)
[2024-12-27] MEDS ORDERED: CYCLOBENZAPRINE 10 MG TABLET ONE (10:44)
[2024-12-27] MEDS ORDERED: HYDROCODONE/APAP 5/325MG TABLET ONE (10:44)
[2024-12-27] MEDS: LIDOCAINE 5% (PATCH) 1 EA PATCH TP STA (10:48)
[2024-12-27] MEDS: CYCLOBENZAPRINE 10 MG TABLET PO ONE (10:48)
[2024-12-27] MEDS: HYDROCODONE/APAP 5/325MG TABLET PO ONE (10:48)
== END 2024-12-27 11:06 | disposition home or self-care (01) ==
LOC: ER 09:29
DX: M50.30 Other cervical disc degeneration, unspecified cervical region (principal); M62.838 Other muscle spasm; Z98.890 Other specified postprocedural states; Z79.899 Other long term (current) drug therapy
CPT/HCPCS: 72125-TC